=== PATIENT | male | born 1945 | race Caucasian/White ===

== ENCOUNTER 2019-03-16 16:37 | Emergency (ER) | payer MEDICARE ==
[~2019-03-16] VITALS: Ht 170.2 cm; Wt 68.0 kg
[2019-03-16 16:57] VITALS: BP_SYST 144
--- NOTE | 2019-03-16 17:02 | NUR ---
Patient triaged and placed in waiting room. VSS and patient appears in no acute distress at this time. Awaiting available bed, and MD notified of need for MSE.
--- NOTE | 2019-03-16 17:17 | NUR ---
PATIENT PRESENTS TO THE ER WITH HX OF LEFT UPPER QUADRANT ABDOMINAL PAIN FOR 8 DAYS; NO TRAUMA, NO OTHER REMARKABLE S/S; PATIENT PLACED IN ER #7 AT 1715
--- NOTE | 2019-03-16 17:18 | NUR ---
Patient to ER bed 7 to gown for evaluation. Side rails up. Report given to REYNA SHETTY .
[2019-03-16] MEDS ORDERED: LAMO200T2 PO (17:22)
[2019-03-16] MEDS ORDERED: BUPR300T55 PO (17:22)
[2019-03-16] MEDS ORDERED: [UNRECOGNIZED DRUG - CODE] PO (17:22)
[2019-03-16] MEDS ORDERED: LOSA100T23 PO (17:22)
[2019-03-16] MEDS ORDERED: PRIM50TA31 PO (17:22)
[2019-03-16] MEDS ORDERED: AMLO10TA88 PO (17:22)
--- NOTE | 2019-03-16 17:36 | NUR ---
ER Dr. Jorgensen at bedside examining patient.
--- NOTE | 2019-03-16 17:49 | NUR ---
Patient transported to radiology ambulatory, accompanied by radiology specialist.
--- NOTE | 2019-03-16 17:53 | NUR ---
Returns to ER department from radiology. Placed on quality assurance monitor final, blood pressure machine and pulse oximeter.
[2019-03-16 18:17] LABS: BASOPHILS # (AUTO) 0.1 K/uL (0.0-0.2); BASOPHILS % (AUTO) 1.6 % (0.0-2.0); EOSINOPHILS # (AUTO) 0.1 K/uL (0.0-0.4); EOSINOPHILS % (AUTO) 2.5 % (0.0-4.0); HEMATOCRIT 35.8 % (36-54); HEMOGLOBIN 11.8 g/dL (14.0-18.0); MEAN CORPUSCULAR HEMOGLOBIN 32 pg (27-31); MEAN CORPUSCULAR HGB CONC 33 % (32-36); MEAN CORPUSCULAR VOLUME 97 fL (79.0-98.0); MONOCYTES # (AUTO) 0.4 K/uL (0.0-1.0); MONOCYTES % (AUTO) 6.5 % (1.7-9.3); NEUTROPHILS # (AUTO) 4.5 K/uL (1.8-7.7); NEUTROPHILS % (AUTO) 73.4 % (40.0-70.0); PLATELET COUNT (AUTO) 331 K/uL (130-430); RED CELL DISTRIBUTION WIDTH 13.8 % (9.0-15.0); WHITE BLOOD COUNT (AUTO) 6.1 K/uL (4.8-10.8)
[2019-03-16 18:44] LABS: ANION GAP 6 (5-15); CALCIUM 9.1 mg/dL (8.4-11.0); CHLORIDE 106 mmol/L (98-107); CREATININE 1.49 mg/dL (0.55-1.30); GLUCOSE 85 mg/dL (70-99); POTASSIUM 4.2 mmol/L (3.5-5.1); SODIUM SERUM 137 mmol/L (136-145); UREA NITROGEN, BLOOD 13 mg/dL (8-21)
[2019-03-16 18:51] LABS: ALANINE AMINOTRANSFERASE 29 U/L (12-78); ALBUMIN 3.3 g/dL (3.4-4.8); ASPARTATE AMINOTRANSFERASE 18 U/L (10-37); LIPASE 149 U/L (73-393); TOTAL BILIRUBIN 0.4 mg/dL (0.0-1.0)
--- NOTE | 2019-03-16 19:07 | NUR ---
Patient given written and verbal discharge instructions and verbalizes understanding. ER Dr. Jorgensen discussed with patient the results and treatment provided. Patient in stable condition. ID arm band removed. No Rx given. Patient educated on pain management and to follow up with PMD. Pain Scale 0/10. Opportunity for questions provided and answered. Medication side effect fact sheet provided.
[2019-03-16 19:11] VITALS: BP_SYST 140
== END 2019-03-16 19:07 | disposition home or self-care (01) ==
LOC: SED 16:37
DX: K59.00 Constipation, unspecified (principal); I10 Essential (primary) hypertension; F31.9 Bipolar disorder, unspecified; Z79.899 Other long term (current) drug therapy
CPT/HCPCS: 36415; 80053; 83690-TC; 85025; 99284